=== PATIENT | male | born 1955 | race Caucasian/White ===

== ENCOUNTER → 2016-12-09 | Outpatient (CLI) | payer OTHER ==
[~2016-12-09] MED LIST: ACET500C4 PO; CELE200C PO; MV C PO
--- NOTE | 2016-12-09 11:51 | Diagnostic Imaging Report ---
PROCEDURE: MRI right joint upper extremity without contrast. TECHNIQUE: Multiplanar, multisequence non contrast-enhanced MRI of the right upper extremity was accomplished. INDICATION: Right shoulder pain. FINDINGS: There is no os acromiale or Hill-Sachs deformity. The acromioclavicular joint demonstrate significant hypertrophy with inferior osteophytes seen to have an impression upon the myotendinous junction of the supraspinatus. Also the acromion demonstrates a laterally downsloping configuration. There is increased signal within the substance of the distal rotator cuff supraspinatus and infraspinatus tendons and tendon thickening compatible with tendinosis and intrasubstance partial tear. No retracted or full-thickness tear. The bone marrow demonstrate the subchondral edema at the AC joint level and the cystic change in the lesser tuberosity. The long head of the biceps tendon is within its groove. The subscapular tendon demonstrate mild increased signal suggestive of tendinosis. The glenoid labrum is not well evaluated on this study without articular contrast with slight areas of increased signal could be degenerative related. Mild thickening in the inferior glenohumeral ligament is perhaps related to prior injury. There is a prominent muscle bulk and normal muscle signal around the shoulder. IMPRESSION: 1. There is prominent, acromioclavicular joint osteoarthritis with prominent inferior osteophytes seen that is indenting the myotendinous junction of the supraspinatus. 2. 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 3. Rotator cuff tendinosis and intrasubstance partial tears in the supraspinatus and infraspinatus distal tendons. Dictated by: Dictated on workstation # [id number]
== END ==
LOC: RAD 07:47
PROVIDERS: ATTEND Orthopaedic Surgery
DX: M75.111 Incomplete rotator cuff tear or rupture of right shoulder, not specified as traumatic (principal); M75.81 Other shoulder lesions, right shoulder; M19.011 Primary osteoarthritis, right shoulder
CPT/HCPCS: 73221

== ENCOUNTER → 2021-08-03 | Outpatient (CLI) | payer OTHER ==
[~2021-08-03] MED LIST changes: +AMOX-358 PO; +PRD1T
== END ==
LOC: WOUNDCARE 09:02
PROVIDERS: ATTEND Family Medicine
DX: T81.31XA Disruption of external operation (surgical) wound, not elsewhere classified, initial encounter (principal); C43.9 Malignant melanoma of skin, unspecified; E66.09 Other obesity due to excess calories; I96 Gangrene, not elsewhere classified
CPT/HCPCS: 11042; G0463

== ENCOUNTER → 2021-08-13 | Outpatient (CLI) | payer OTHER | LOC: WOUNDCARE 08:32 | PROVIDERS: ATTEND Family Medicine | DX: T81.31XA Disruption of external operation (surgical) wound, not elsewhere classified, initial encounter (principal); C43.9 Malignant melanoma of skin, unspecified; E66.09 Other obesity due to excess calories; I96 Gangrene, not elsewhere classified | CPT/HCPCS: 11042; 97605; G0463 ==

== ENCOUNTER → 2021-08-17 | Outpatient (CLI) | payer OTHER | LOC: WOUNDCARE 08:57 | PROVIDERS: ATTEND Family Medicine | DX: C43.9 Malignant melanoma of skin, unspecified (principal); T81.31XA Disruption of external operation (surgical) wound, not elsewhere classified, initial encounter; E66.09 Other obesity due to excess calories; I96 Gangrene, not elsewhere classified | CPT/HCPCS: 11042; G0463 ==

== ENCOUNTER → 2021-08-21 | Outpatient (CLI) | payer OTHER | LOC: WOUNDCARE 08-18 13:02 | PROVIDERS: ATTEND Family Medicine | DX: S31.000A Unspecified open wound of lower back and pelvis without penetration into retroperitoneum, initial encounter (principal) | CPT/HCPCS: 97605; G0463 ==

== ENCOUNTER → 2021-08-24 | Outpatient (CLI) | payer OTHER | LOC: WOUNDCARE 08:50 | PROVIDERS: ATTEND Family Medicine | DX: T81.31XA Disruption of external operation (surgical) wound, not elsewhere classified, initial encounter (principal); C43.9 Malignant melanoma of skin, unspecified; E66.09 Other obesity due to excess calories; I96 Gangrene, not elsewhere classified | CPT/HCPCS: 11042; 97605; G0463 ==

== ENCOUNTER → 2021-08-27 | Outpatient (CLI) | payer OTHER | LOC: WOUNDCARE 08:52 | PROVIDERS: ATTEND Family Medicine | DX: S31.000A Unspecified open wound of lower back and pelvis without penetration into retroperitoneum, initial encounter (principal); X58.XXXA Exposure to other specified factors, initial encounter | CPT/HCPCS: 97605; G0463 ==

== ENCOUNTER → 2021-08-31 | Outpatient (CLI) | payer OTHER | LOC: WOUNDCARE 08:45 | PROVIDERS: ATTEND Family Medicine | DX: T81.31XA Disruption of external operation (surgical) wound, not elsewhere classified, initial encounter (principal); C43.9 Malignant melanoma of skin, unspecified; E66.09 Other obesity due to excess calories; I96 Gangrene, not elsewhere classified | CPT/HCPCS: 11042; A6197; A6212; G0463 ==

== ENCOUNTER → 2021-09-07 | Outpatient (CLI) | payer OTHER | LOC: WOUNDCARE 07:57 | PROVIDERS: ATTEND Family Medicine | DX: T81.31XA Disruption of external operation (surgical) wound, not elsewhere classified, initial encounter (principal); C43.9 Malignant melanoma of skin, unspecified; E66.09 Other obesity due to excess calories; I96 Gangrene, not elsewhere classified | CPT/HCPCS: 11042; A6212; G0463 ==

== ENCOUNTER → 2021-09-14 | Outpatient (CLI) | payer OTHER | LOC: WOUNDCARE 07:55 | PROVIDERS: ATTEND Family Medicine | DX: T81.31XA Disruption of external operation (surgical) wound, not elsewhere classified, initial encounter (principal); C43.9 Malignant melanoma of skin, unspecified; E66.09 Other obesity due to excess calories; L92.8 Other granulomatous disorders of the skin and subcutaneous tissue; I96 Gangrene, not elsewhere classified; Z68.31 Body mass index [BMI] 31.0-31.9, adult | CPT/HCPCS: 17250; A6212; G0463 ==

== ENCOUNTER → 2021-09-21 | Outpatient (CLI) | payer OTHER | LOC: WOUNDCARE 08:08 | PROVIDERS: ATTEND Family Medicine | DX: C43.9 Malignant melanoma of skin, unspecified (principal); E66.09 Other obesity due to excess calories; Z68.31 Body mass index [BMI] 31.0-31.9, adult | CPT/HCPCS: 99212 ==